=== PATIENT | female | born 1935 | race Hispanic/Latino ===

== ENCOUNTER 2019-02-10 02:42 | Emergency (ER) | payer MEDICARE, OTHER ==
[2019-02-10] MEDS ORDERED: BOOSTRIX IM ONE (03:06)
--- NOTE | 2019-02-10 03:17 | Emergency Department Report ---
HPI - General Time Seen by Provider: 02/10/19 02:58 - HPI HPI: Room 3 The patient is an 83-year-old female presenting with a chief complaint of fall. The patient's son states that the patient fall this evening when they went in to find her she was conscious. Patient complains of hoarseness and weakness the lateral upper and lower extremities. The patient states she is unable to move her arms or legs. Location: [See above] Duration: [See above] Quality: [See above] Severity: [See above] Timing: [See above] Context: [See above] Modifying factors: [See above] Associated signs and symptoms: [see above] ED Past Medical Hx - Past Medical History Previous Medical History?: Yes Hx Diabetes: Yes Additional medical history: neuropathy, breast CA - Surgical History Past Surgical History?: No - Family History Family history: no significant - Social History Smoking Status: Never Smoker Substance Use Type: None ED Review of Systems ROS: Stated complaint: FALL/HEAD LAC Other details as noted in HPI Constitutional: no symptoms reported Eyes: denies: eye pain ENT: denies: throat pain Respiratory: no symptoms reported Cardiovascular: denies: chest pain Endocrine: no symptoms reported Gastrointestinal: denies: abdominal pain Neurological: headache, weakness Physical Exam - Physical Exam Vital Signs: Vital Signs 02/10/19 02/10/19 03:04 03:10 Temperature 97.9 F Pulse Rate 86 Respiratory 13 Rate Blood Pressure 154/76 O2 Sat by Pulse 98 98 Oximetry Physical Exam: GENERAL: The patient is well-developed well-nourished female lying on stretcher with intermittent hoarseness. Patient presents to the ED without a cervical collar in place. Cervical collar placed by ED staff HEENT: Normocephalic. Approximately 4 cm laceration to the forehead, hemo static. Extraocular motions are intact. Patient has moist mucous membranes. NECK: Supple. Trachea midline. Mild axial tenderness CHEST/LUNGS: Clear to auscultation. There is no respiratory distress noted. HEART/CARDIOVASCULAR: Regular. There is no tachycardia. There is no gallop rub or murmur. ABDOMEN: Abdomen is soft, nontender. Patient has normal bowel sounds. There is no abdominal distention. SKIN: There is no rash. There is no edema. There is no diaphoresis. NEURO: The patient is awake, alert, and oriented. The patient is cooperative. The patient is unable to move her arms or legs on command however patient was witnessed moving the toes of her right foot before being prompted. Patient states she does not feel the sensation of light touch to her arms or legs. The patient has intermittently hoarse speech MUSCULOSKELETAL:There is no evidence of acute injury. ED Course Vital Signs 02/10/19 02/10/19 03:04 03:10 Temperature 97.9 F Pulse Rate 86 Respiratory 13 Rate Blood Pressure 154/76 O2 Sat by Pulse 98 98 Oximetry - Reevaluation(s) Reevaluation #1: 05:15 Case discussed with [facility]. Patient accepted by Dr. Hui ([place] [facility]) 02/10/19 05:51 During facial laceration repair the patient continued to complain of worsening tightness to her throat and inability to swallow. Subsequently the decision to protect the patient's airway and intubate was made using RSI. RSI was performed using in-line C-spine stabilization 02/10/19 06:00 - Intubation Time Out Performed: Yes Sedative: Etomidate Mg Given: 20 Paralytic: Succinylcholine Mg Given: 100 Laryngoscope: Heraclio Size: 3 ET Tube Size: 7 Tube Secured Depth (cm): 21 Tube Secured Location: lips Tube Placement Confirmation: visualized tube passing t, equal breath sounds bilat, no breath sounds over epi, confirmation by capnometr Patient Tolerated Procedure: well Intubation Complications: hypoxia (patient exhibited transient hypoxia desat into the 40s but promptly returning to 100% with aggressive bagging after intubation) - Laceration /Wound Repair Right Frontal Wound Location: face Wound Length (cm): 4 Wound's Depth, Shape: linear Wound Explored: clean Betadine Prep?: Yes Anesthesia: Lidocaine w/ Epi Volume Anesthetic (ccs): 5 Suture Size/Type: 5:0 Number of Sutures: 3 Sterile Dressing Applied?: Yes ED Medical Decision Making - Lab Data Result diagrams: 02/10/19 03:25 02/10/19 03:25 Laboratory Tests 02/10/19 02/10/19 02/10/19 03:25 03:25 03:25 WBC 10.6 RBC 4.56 Hgb 14.6 H Hct 42.6 MCV 93 MCH 32 MCHC 34 RDW 12.6 L Plt Count 125 L Lymph % (Auto) 7.3 L Brule % (Auto) 6.3 Eos % (Auto) 1.8 Baso % (Auto) 0.5 Lymph # 0.8 L Brule # 0.7 Eos # 0.2 Baso # 0.1 Seg Neutrophils % 84.1 H Seg Neutrophils # 8.9 H PT 13.5 INR 1.06 APTT 30.5 Sodium 137 Potassium 4.4 Chloride 96.1 L Carbon Dioxide 25 Anion Gap 20 BUN 21 H Creatinine 0.7 Estimated GFR > 60 BUN/Creatinine Ratio 30 Glucose 299 H Calcium 9.3 Magnesium 1.80 - Radiology Data Radiology results: report reviewed (CT head, CT cervical spine), image reviewed (CT head, CT cervical spine, chest x-ray) interpreted by me: Chest x-ray-ET tube in appropriate position. No focal infiltrates, no pneumothorax [facility] [address] [place] [address] Cat Scan Report Signed Patient: HENRRY ROSENBERG MR#: [id number] [birth year] : 1935 Acct:[id number] Age/Sex: 83 / F ADM Date: 02/10/19 Loc: ED Attending Dr: Ordering Physician: TANYA KAY MD Date of Service: 02/10/19 Procedure(s): CT cervical spine wo con Accession Number(s): [id number] cc: TANYA KAY MD CT cervical spine wo con INDICATION: fall, head injury, extremity weakness. TECHNIQUE: All CT scans at this location are performed using the following dose modulation technique: Automated exposure control. COMPARISON: None available. FINDINGS: There has been previous anterior cervical fusion extending from C3 through 5. There is a fracture/pseudoarthrosis through the C3-4 disc space. In addition, there is a fracture of the C3 spinous process and left lamina. There is mature osseous continuity across the ACDF site at 4-5 level. Moderate preve rtebral hyperdense soft tissue hematoma is seen extending from C2-3 through C5 level. Moderate facet degenerative disease extends from C2-7. Moderately advanced discogenic degenerative disease C4-5 and moderate discogenic degenerative disease C5-6 Visualized lung apices are clear. IMPRESSION: 1. Acute unstable fracture/pseudoarthrosis at C3-4 level with fracture of left C3 lamina and spinous process. 2. Moderate prevertebral soft tissue hematoma. 3. Previous ACDF with mature osseous continuity at C4-5. 4. Moderate multilevel facet degenerative disease. Critical result discovered at 4:05 AM central time 02/10/2019 hours and called to at 4:10 AM hours on 02/10/2019. A read back was performed. Signer Name: Ron Pérez MD Signed: 02/10/2019 5:11 AM Workstation Name: [id number] Transcribed By: TL Dictated By: Ron Pérez MD Electronically Authenticated By: Ron Pérez MD Signed Date/Time: 02/10/19510 DD/ 0458 TD/TT: [facility] [address] [place] [address] Cat Scan Report Signed Patient: HENRRY ROSENBERG MR#: [id number] [birth year] : 1935 Acct:[id number] Age/Sex: 83 / F ADM Date: 02/10/19 Loc: ED Attending Dr: Ordering Physician: TANYA KAY MD Date of Service: 02/10/19 Procedure(s): CT head/brain wo con Accession Number(s): [id number] cc: TANYA KAY MD CT HEAD WITHOUT CONTRAST INDICATION / CLINICAL INFORMATION: fall, head injury. C-spine fracture TECHNIQUE: All CT scans at this location are performed using CT dose reduction for ALARA by means of automated exposure control. COMPARISON: None available. FINDINGS: HEMORRHAGE: None. EXTRA-AXIAL SPACES: Normal in size and morphology for the patient's age. VENTRICULAR SYSTEM: Normal in size and morphology for the patient's age. CEREBRAL PARENCHYMA: Tiny hypodense subcentimeter lesion right basal ganglia image 26 characteristic for age indeterminate probable lacunar infarct. Mild periventricular white matter hypoattenuation characteristic for microangiopathy. No significant abnormality. No acute territorial infarct. MIDLINE SHIFT OR HERNIATION: None. CEREBELLUM / BRAINSTEM: No significant abnormality. ORBITS: Normal as visualized. SOFT TISSUES of HEAD: Moderate right frontal scalp hematoma/laceration. CALVARIUM: No significant abnormality. PARANASAL SINUSES / MASTOID AIR CELLS: Acute mildly displaced fractures of both lateral nasal bones. ADDITIONAL FINDINGS: None. IMPRESSION: 1. No acute intracranial bleed.. 2. Moderate right frontal scalp hematoma 3. Acute mildly displaced fractures of both lateral nasal bones. Signer Name: Ron Pérez MD Signed: 02/10/2019 5:14 AM Workstation Name: [id number] Transcribed By: TL Dictated By: Ron Pérez MD Electronically Authenticated By: Ron Pérez MD Signed Date/Time: 02/10/19513 DD/ 0 TD/TT: - Differential Diagnosis closed head injury, ICH, cervical fracture, central cord syndrome Critical Care Time: Yes Critical care time in (mins) excluding proc time.: 30 Critical care attestation.: If time is entered above; I have spent that time in minutes in the direct care of this critically ill patient, excluding procedure time. ED Disposition Clinical Impression: Cervical spine fracture, Quadriplegia, acute traumatic Disposition: DC/TX-70 ANOTHER TYPE HLTHCARE Is pt being admited?: No Does the pt Need Aspirin: No Condition: Serious Referrals: PRIMARY CARE, [Primary Care Provider] - 3-5 Days Time of Disposition: 05:57 (awaiting transport)
[2019-02-10 03:34] LABS: Basophils # (Auto) 0.1 K/mm3 (0.0-0.1); Basophils % (Auto) 0.5 % (0.0-1.8); Eosinophils # (Auto) 0.2 K/mm3 (0.0-0.4); Eosinophils % (Auto) 1.8 % (0.0-4.3); Hematocrit 42.6 % (30.3-42.9); Hemoglobin 14.6 gm/dl (10.1-14.3); Lymphocytes # (Auto) 0.8 K/mm3 (1.2-5.4); Lymphocytes % (Auto) 7.3 % (13.4-35.0); Mean Corpuscular HGB Conc 34 % (30-34); Mean Corpuscular Volume 93 fl (79-97); Monocytes # (Auto) 0.7 K/mm3 (0.0-0.8); Monocytes % (Auto) 6.3 % (0.0-7.3); Platelet Count 125 K/mm3 (140-440); Red Blood Count 4.56 M/mm3 (3.65-5.03); Red Cell Distribution Width 12.6 % (13.2-15.2)
[2019-02-10 03:48] LABS: Partial Thromboplastin Time 30.5 Sec. (24.2-36.6)
[2019-02-10 03:53] LABS: INR 1.06 (0.87-1.13)
[2019-02-10 04:19] LABS: BUN/Creatinine Ratio 30; Blood Urea Nitrogen 21 mg/dL (7-17); Calcium 9.3 mg/dL (8.4-10.2); Hemolysis Index 58
--- NOTE | 2019-02-10 05:15 | Cat Scan Report ---
CT cervical spine wo con INDICATION: fall, head injury, extremity weakness. TECHNIQUE: All CT scans at this location are performed using the following dose modulation technique: Automated exposure control. COMPARISON: None available. FINDINGS: There has been previous anterior cervical fusion extending from C3 through 5. There is a fracture/pse udoarthrosis through the C3-4 disc space. In addition, there is a fracture of the C3 spinous process and left lamina. There is mature osseous continuity across the ACDF site at 4-5 level. Moderate prevertebral hyperdense soft tissue hematoma is seen extending from C2-3 through C5 level. Moderate facet degenerative disease extends from C2-7. Moderately advanced discogenic degenerative disease C4-5 and moderate discogenic degenerative disease C5-6 Visualized lung apices are clear. IMPRESSION: 1. Acute unstable fracture/pseudoarthrosis at C3-4 level with fracture of left C3 lamina and spinous process. 2. Moderate prevertebral soft tissue hematoma. 3. Previous ACDF with mature osseous continuity at C4-5. 4. Moderate multilevel facet degenerative disease. Critical result discovered at 4:05 AM central time 02/10/2019 hours and called to at 4:10 AM hector anderson on 02/10/2019. A read back was performed. Signer Name: Ron Pérez MD Signed: 02/10/2019 5:11 AM Workstation Name: [email or web address]
--- NOTE | 2019-02-10 05:18 | Cat Scan Report ---
CT HEAD WITHOUT CONTRAST INDICATION / CLINICAL INFORMATION: fall, head injury. C-spine fracture TECHNIQUE: All CT scans at this location are performed using CT dose reduction for ALARA by means of automated e xposure control. COMPARISON: None available. FINDINGS: HEMORRHAGE: None. EXTRA-AXIAL SPACES: Normal in size and morphology for the patient's age. VENTRICULAR SYSTEM: Normal in size and morphology for the patient's age. CEREBRAL PARENCHYMA: Tiny hypodense subcentimeter lesion right basal ganglia image 26 characteristic for age indeterminate probable lacunar infarct. Mild periventricular white matter hypoattenuation neal racteristic for microangiopathy. No significant abnormality. No acute territorial infarct. MIDLINE SHIFT OR HERNIATION: None. CEREBELLUM / BRAINSTEM: No significant abnormality. ORBITS: Normal as visualized. SOFT TISSUES of HEAD: Moderate right frontal scalp hematoma/laceration. CALVARIUM: No significant abnormality. PARANASAL SINUSES / MASTOID AIR CELLS: Acute mildly displaced fractures of both lateral nasal bones. ADDITIONAL FINDINGS: None. IMPRESSION: 1. No acute intracranial bleed.. 2. Moderate right frontal scalp hematoma 3. Acute mildly displaced fractures of both lateral nasal bones. Signer Name: Ron Pérez MD Signed: 02/10/2019 5:14 AM Workstation Name: [id number]
[2019-02-10] MEDS ORDERED: XYLOCAINE 1% 20 mL ONE (05:28)
[2019-02-10] MEDS ORDERED: XYLOCAINE 1%/ EPI 1:100,000 INFILTRATI ONE (05:29)
[2019-02-10] MEDS ORDERED: QUELICIN ONE (05:45)
[2019-02-10] MEDS ORDERED: AMIDATE IV ONE (05:45)
[2019-02-10] MEDS ORDERED: VERSED IV PRN (05:48)
[2019-02-10] MEDS ORDERED: ATIVAN IV ONE (05:54)
[2019-02-10] MEDS ORDERED: ATIVAN ONE (05:56)
[2019-02-10] MEDS ORDERED: MIDAZOLAM 100 MG in NACL 0.9% 80 ML IV SCH (06:00)
[2019-02-10 06:14] VITALS: BP 55/33
[2019-02-10] MEDS ORDERED: NACL 0.9% 1000 ML 1,000 ML ONE (06:21)
--- NOTE | 2019-02-10 06:31 | XRay Report ---
CHEST 1 VIEW 02/10/2019 5:54 AM INDICATION / CLINICAL INFORMATION: POST INTUBATION. COMPARISON: None available. FINDINGS: SUPPORT DEVICES: ET tube has tip 4.5 cm above eduard in expected position HEART / MEDIASTINUM: No significant abnormality. LUNGS / PLEURA: No significant pulmonary or pleural abnormality. No pneumothorax. ADDITIONAL FINDINGS: No significant additional findings. IMPRESSION: 1. No acute findings. Signer Name: Ron Pérez MD Signed: 02/10/2019 6:27 AM Workstation Name: [email or web address]
[2019-02-10] MEDS ORDERED: XYLOCAINE 1%/ EPI 1:100,000 INFILTRATI NR (08:00)
== END 2019-02-10 06:35 | disposition other institution (70) ==
LOC: ED 02:42
DX: S12.200A Unspecified displaced fracture of third cervical vertebra, initial encounter for closed fracture (principal); E11.65 Type 2 diabetes mellitus with hyperglycemia; Z85.3 Personal history of malignant neoplasm of breast; Z88.0 Allergy status to penicillin; Z88.2 Allergy status to sulfonamides; Z88.8 Allergy status to other drugs, medicaments and biological substances; W19.XXXA Unspecified fall, initial encounter; Y93.89 Activity, other specified; Y92.89 Other specified places as the place of occurrence of the external cause; Y99.8 Other external cause status
CPT/HCPCS: 12013; 31500; 36415; 70450; 71045; 72125; 80048; 83735; 85025; 85610; 85730; 90471; 90715; 96374; 99291; J0330; J2060; J7030; 94002; J2250